=== PATIENT | female | born 1995 | race Asian ===

== ENCOUNTER 2017-09-30 12:12 | Emergency (ER) | payer OTHER ==
[2017-09-30 13:51] LABS: BASO % 0.2 % (0.0-1.0); EOS % 0.4 % (0.0-3.0); HEMATOCRIT 35.3 % (36.0-47.0); HEMOGLOBIN 12.2 g/dl (12.0-15.5); IMMATURE GRANULOCYTE % 0.8 % (0-3.0); LYMPH # 2.5 10^3/uL (1.5-6.5); LYMPH % 21.7 % (24.0-44.0); MEAN CORPUSCULAR HEMOGLOBIN 29.4 pg (27.0-33.0); MEAN CORPUSCULAR HGB CONC 34.6 g/dl (32.0-36.5); MEAN CORPUSCULAR VOLUME 85.1 fl (80.0-96.0); MONO # 0.8 10^3/uL (0.0-0.8); MONO % 6.7 % (0.0-5.0); NEUTROPHILS % 70.2 % (36.0-66.0); PLATELET COUNT, AUTOMATED 278 10^3/uL (150-450); RED BLOOD COUNT 4.15 10^6/uL (4.00-5.40); RED CELL DISTRIBUTION WIDTH 13.2 % (11.5-14.5); WHITE BLOOD COUNT 11.4 10^3/uL (4.0-10.0)
[2017-09-30 14:10] LABS: KETONE, URINE AUTO RFX 1+ mg/dL (NEGATIVE); LEUKOCYTE ESTERASE UR AUTO RFX NEGATIVE (NEGATIVE); MUCUS, URINE RFX SMALL (NEGATIVE); NITRITE, URINE AUTO RFX NEGATIVE (NEGATIVE); RBC, URINE AUTO RFX 4 /HPF (0-3); SPECIFIC GRAVITY UR AUTO RFX 1.027 (1.002-1.035); SQUAM EPITHELIAL CELL UR AURFX 1 /HPF (0-6); WBC, URINE AUTO RFX 1 /HPF (0-3)
[2017-09-30 14:39] LABS: ANION GAP 9 MEQ/L (8-16); BLOOD UREA NITROGEN 10 MG/DL (7-18); CALCIUM LEVEL 8.8 MG/DL (8.5-10.1); CARBON DIOXIDE LEVEL 24 MEQ/L (21-32); CHLORIDE LEVEL 104 MEQ/L (98-107); CREATININE FOR GFR 0.59 MG/DL (0.55-1.30); GLUCOSE, FASTING 80 MG/DL (70-100); HCG, SERUM QUANTITATIVE 42091 MIU/ML; POTASSIUM SERUM 4.3 MEQ/L (3.5-5.1); SODIUM LEVEL 137 MEQ/L (136-145)
== END 2017-09-30 15:04 | disposition home or self-care (01) ==
LOC: M ED 12:12
DX: O26.851 Spotting complicating pregnancy, first trimester (principal); N93.9 Abnormal uterine and vaginal bleeding, unspecified; Z3A.01 Less than 8 weeks gestation of pregnancy
CPT/HCPCS: 76801

== ENCOUNTER 2018-01-29 20:55 | Outpatient (CLI) | payer OTHER ==
[2018-01-29 21:46] LABS: APPEARANCE, URINE HAZY (CLEAR); BACTERIA, URINE AUTO NEGATIVE (NEGATIVE); BILIRUBIN, URINE AUTO NEGATIVE (NEGATIVE); BLOOD, URINE BLOOD 1+ (NEGATIVE); COLOR, URINE YELLOW (YELLOW); GLUCOSE, URINE (UA) AUTO NEGATIVE (NEGATIVE); KETONE, URINE AUTO NEGATIVE (NEGATIVE); LEUKOCYTE ESTERASE, URINE AUTO NEGATIVE (NEGATIVE); MUCUS, URINE SMALL (NEGATIVE); NITRITE, URINE AUTO NEGATIVE (NEGATIVE); PROTEIN, URINE AUTO NEGATIVE (NEGATIVE); RBC, URINE AUTO 1 /HPF (0-3); SPECIFIC GRAVITY URINE AUTO 1.019 (1.002-1.035); SQUAMOUS EPITHELIAL CELL UR AU 4 /HPF (0-6); UROBILINOGEN, URINE AUTO 0.2 mg/dL (0.0-2.0); WBC, URINE AUTO 4 /HPF (0-3)
== END 2018-01-29 22:10 | disposition home or self-care (01) ==
LOC: M LDO 20:55
DX: O26.892 Other specified pregnancy related conditions, second trimester (principal); R10.2 Pelvic and perineal pain; O99.612 Diseases of the digestive system complicating pregnancy, second trimester; K59.00 Constipation, unspecified; Z3A.23 23 weeks gestation of pregnancy
CPT/HCPCS: G0463

== ENCOUNTER 2018-03-03 12:52 | Emergency (ER) | payer OTHER ==
[2018-03-03 14:08] LABS: BASO % 0.5 % (0.0-1.0); EOS % 0.5 % (0.0-3.0); HEMATOCRIT 29.9 % (36.0-47.0); LYMPH # 1.4 10^3/uL (1.5-6.5); LYMPH % 17.2 % (24.0-44.0); MEAN CORPUSCULAR HEMOGLOBIN 29.4 pg (27.0-33.0); MEAN CORPUSCULAR HGB CONC 33.4 g/dl (32.0-36.5); MEAN CORPUSCULAR VOLUME 87.9 fl (80.0-96.0); MONO # 0.8 10^3/uL (0.0-0.8); MONO % 9.9 % (0.0-5.0); NEUTROPHILS # 5.6 10^3/uL (1.8-7.7); NEUTROPHILS % 69.9 % (36.0-66.0); PLATELET COUNT, AUTOMATED 269 10^3/uL (150-450); RED CELL DISTRIBUTION WIDTH 13.1 % (11.5-14.5)
[2018-03-03] MEDS: NS 1,000 ML IV (14:15)
[2018-03-03] MEDS: METOCLOPRAMIDE INJ 10MG/2ML VIAL (J2765) IV (14:15)
[2018-03-03 14:21] LABS: INR 1.03; PARTIAL THROMBOPLASTIN TIME 29.3 SECONDS (25.4-37.6); PROTHROMBIN TIME 13.6 SECONDS (12.1-14.4)
[2018-03-03 14:30] LABS: ALBUMIN 2.7 GM/DL (3.2-5.2); ALBUMIN/GLOBULIN RATIO 0.75 (1.00-1.93); ALKALINE PHOSPHATASE 108 U/L (45-117); ALT/SGPT 17 U/L (12-78); ANION GAP 8 MEQ/L (8-16); AST/SGOT 12 U/L (7-37); BILIRUBIN,DIRECT < 0.1 MG/DL (0.0-0.2); BILIRUBIN,TOTAL 0.2 MG/DL (0.2-1.0); BLOOD UREA NITROGEN 10 MG/DL (7-18); CALCIUM LEVEL 8.3 MG/DL (8.5-10.1); CARBON DIOXIDE LEVEL 24 MEQ/L (21-32); CHLORIDE LEVEL 106 MEQ/L (98-107); CREATININE FOR GFR 0.46 MG/DL (0.55-1.30); GLUCOSE, FASTING 96 MG/DL (70-100); POTASSIUM SERUM 3.8 MEQ/L (3.5-5.1); SODIUM LEVEL 138 MEQ/L (136-145); TOTAL PROTEIN 6.3 GM/DL (6.4-8.2)
== END 2018-03-03 16:08 | disposition home or self-care (01) ==
LOC: M ED 12:52
DX: O99.353 Diseases of the nervous system complicating pregnancy, third trimester (principal); G43.109 Migraine with aura, not intractable, without status migrainosus; Z3A.29 29 weeks gestation of pregnancy
CPT/HCPCS: J2765

== ENCOUNTER 2018-05-10 13:50 | Outpatient (CLI) | payer OTHER ==
[~2018-05-10] VITALS: Ht 172.7 cm; Wt 105.1 kg
[~2018-05-10 13:50] MED LIST: PRENTAB55 PO
[2018-05-10 14:19] VITALS: BP 139/83
== END 2018-05-10 15:20 | disposition home or self-care (01) ==
LOC: M LDO 13:50
PROVIDERS: ATTEND Obstetrics & Gynecology
DX: O26.893 Other specified pregnancy related conditions, third trimester (principal); O47.1 False labor at or after 37 completed weeks of gestation; Z3A.38 38 weeks gestation of pregnancy
CPT/HCPCS: 59025; G0378; G0463

== ENCOUNTER 2018-05-13 14:14 | Inpatient (IN) | payer OTHER ==
[2018-05-13] VITALS (19 sets, daily range): BP systolic 139–192; BP diastolic 64–95
[~2018-05-13] VITALS: Ht 172.7 cm; Wt 105.8 kg
[2018-05-13] MEDS ORDERED: PRENTAB9 PO (14:38)
[2018-05-13 15:32] LABS: HEMATOCRIT 30.8 % (36.0-47.0); HEMOGLOBIN 9.8 g/dl (12.0-15.5); MEAN CORPUSCULAR HEMOGLOBIN 25.4 pg (27.0-33.0); MEAN CORPUSCULAR HGB CONC 31.8 g/dl (32.0-36.5); MEAN CORPUSCULAR VOLUME 79.8 fl (80.0-96.0); PLATELET COUNT, AUTOMATED 297 10^3/uL (150-450); RED BLOOD COUNT 3.86 10^6/uL (4.00-5.40); WHITE BLOOD COUNT 9.5 10^3/uL (4.0-10.0)
[2018-05-13 15:46] LABS: ALT/SGPT 16 U/L (12-78); BILIRUBIN,TOTAL 0.3 MG/DL (0.2-1.0); CREATININE FOR GFR 0.57 MG/DL (0.55-1.30); LDH LACTATE DEHYDROGENASE 192 U/L (84-246); URIC ACID 4.6 MG/DL (2.6-6.0)
[2018-05-13] MEDS ORDERED: miSOPROStol 50 MCG 1/2 TAB (S0191) As Ordered ONE (17:59)
[2018-05-13] MEDS ORDERED: LACTATED RINGER'S 1000 ML IV STA (18:06)
[2018-05-13] MEDS ORDERED: LR 1,000 ML IV SCH (18:06)
--- NOTE | 2018-05-13 18:29 | HPEPDOC ---
Obstetrical History & Physical General Date of Admission May 13, 2018 at 14:14 History of Present Illness 21 y/o at 38+3 for IOL due to known Pre-E and BP's today 159/84. Diagnosis by BP's this week and 24JAN and a 24 hr UP 403 on 5FEB. Also c/o signif LE and hand swelling. No NOLAND today but has been having NOLAND's the last month. Preg up to this point uncomplicated. 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 Past Medical History Surgical History: Denies/None Family History Significant Family History: No pertinent family hx Social History Marital Status: Family situation: Spouse/partner home Psychosocial History: No pertinent psych hx * Smoker: non-smoker Alcohol: Denies Drugs: denies Abuse Violence Screening Have you been hit/kicked/slapp: No Have you been sexually assault: No Imunizations Tdap status: current Influenza Status: current Allergies Coded Allergies: No Known Allergies (Unverified , 09/30/17) Medications Scheduled Multivitamins/ ( 27-0.8 mg) 1 Tab Tab, 1 TAB PO DAILY Physical Examination Physical Examination GENERAL: Alert and oriented times three. ABDOMEN: Gravid and non-tender to touch. FETUS: Is vertex (VTX) by sterile vaginal examination (SVE), 160/-3 EXTREMITIES: No edema. Vital Signs/I&O Vital Signs Date Time Temp Pulse Resp B/P (MAP) Pulse Ox O2 Delivery O2 Flow Rate FiO2 05/13/18 15:16 85 18 142/95 (111) 05/13/18 14:44 98.4 Laboratory Data 24H LABS Laboratory Tests 2 05/13/18 14:37: Serology Scanned Report Hepatitis B Testing 05/13/18 15:14: Nucleated Red Blood Cells % (auto) 0.0, Creatinine 0.57, Aspartate Amino Transf (AST/SGOT) 15, Alanine Aminotransferase (ALT/SGPT) 16, Lactate Dehydrogenase 192, Total Bilirubin 0.3, Uric Acid 4.6 CBC/BMP Laboratory Tests 05/13/18 15:14 Red Blood Count 3.86 L, Mean Corpuscular Volume 79.8 L, Mean Corpuscular Hemoglobin 25.4 L, Mean Corpuscular Hemoglobin Concent 31.8 L, Red Cell Distribution Width 16.0 H, Aspartate Amino Transf (AST/SGOT) 15, Alanine Aminotransferase (ALT/SGPT) 16, Lactate Dehydrogenase 192, Total Bilirubin 0.3, Uric Acid 4.6 Urine Culture: Other (mixed hema) Pertinent Laboratoy Data Blood Type: A+ RBC Antibody Screen: Negative HIV: Negative Hepatitis B: Negative Rapid Plasma Reagin: Nonreactive Rubella: Immune Varicella: Immune Chlamydia/Gonorrhea: Negative Group B Streptococcus: Positive Quad Screen Test: Declined Cystic Fibrosis: Negative Glucose Tolerance Test: 132 Anatomy Ultrasound Placenta Location: Posterior Normal Anatomy: Yes Placenta Previa: No Assessment Variability: Moderate Accelerations: Positive Decelerations: None Tocometer Contractions: Yes Frequency: irregular Duration: less than 60 seconds Strength: palpated as mild Assessment/Plan Assessment Pre-E, no severe features as of yet. No Mag Sulfate indicated at this point. Plan Admit and orient. 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 Diet: clears Group B Streptococcus (GBS) pos, will start PCN 5/2.5 when active labor Labs and intravenous (IV) per unit protocol. Counseled on Pitocin, cytotec, Cook balloon and induction of labor (IOL). Lactated Ringers (LR): Bolus 1000 mL prior to epidural, then at 125 mL/hr. Anticipate normal spontaneous delivery () C-S as appropriate. Sessions MD HAYS,RODRICK Love MD May 13, 2018 18:29
[2018-05-13] MEDS: miSOPROStol 50 MCG 1/2 TAB (S0191) PO PRN ×2 (18:43→23:22)
[2018-05-13] MEDS ORDERED: CALCIUM GLUCONATE 1,000 MG in D5W MINI-BAG PLUS 100 ML IV PRN (23:15)
[2018-05-13] MEDS ORDERED: MAG Sulf (L&D) 4 GM/100 ML 4 GM in APPROPRIATE DILUENT 1 EA IV ONE (23:15)
[2018-05-13] MEDS ORDERED: LABETALOL HCL 100 MG/20 ML VIAL IV ONE (23:15)
[2018-05-13] MEDS ORDERED: LABETALOL 200 MG TAB PO SCH (23:15)
--- NOTE | 2018-05-13 23:28 | IPNPDOC ---
Text Note Date of Service The patient was seen on 05/13/18. NOTE Cook balloon still in place per RN Second dose Misoprostol due and OK to be placed per SOP, OK to do this, d/w RN BP's noted, evenly mild range and severe range, will start Labetalol 200 mg TID in attempt to minimize the times we need IV meds, however will also give 20 mg IV Labetalol now and monitor q 15 min Will also start Mag Sulfate per protocol 07/06 and get rpt labs (CBC, Pre-e profile and mag level) in 6 hours (initial serum labs were nl) Still planning on cx check 1-2 hrs after Cook balloon is out Sessions VS,Freddie, I+O VSFreddie I+O Laboratory Tests 05/13/18 15:14 Red Blood Count 3.86 L, Mean Corpuscular Volume 79.8 L, Mean Corpuscular Hemoglobin 25.4 L, Mean Corpuscular Hemoglobin Concent 31.8 L, Red Cell Distribution Width 16.0 H, Aspartate Amino Transf (AST/SGOT) 15, Alanine Aminotransferase (ALT/SGPT) 16, Lactate Dehydrogenase 192, Total Bilirubin 0.3, Uric Acid 4.6 Vital Signs Date Time Temp Pulse Resp B/P (MAP) Pulse Ox O2 Delivery O2 Flow Rate FiO2 05/13/18 22:13 68 18 152/86 (108) 05/13/18 21:28 97.6 SESSIONS,RODRICK Love MD May 13, 2018 23:28
[2018-05-13] MEDS: LR 1,000 ML IV SCH (23:52)
[2018-05-14] VITALS (87 sets, daily range): BP systolic 104–159; BP diastolic 55–100
[2018-05-14] MEDS: MAG Sulf (OBGYN) 20GM/500ML 20,000 MG in APPROPRIATE DILUENT 1 EA IV SCH ×3 (00:39→16:25)
[2018-05-14] MEDS ORDERED: LR 1,000 ML IV SCH (02:47)
[2018-05-14] MEDS ORDERED: OXYTOCIN DRIP 30 UNITS in APPROPRIATE DILUENT 1 EA IV SCH (03:00)
[2018-05-14 05:05] LABS: HEMATOCRIT 29.2 % (36.0-47.0); HEMOGLOBIN 9.4 g/dl (12.0-15.5); MEAN CORPUSCULAR HEMOGLOBIN 25.3 pg (27.0-33.0); MEAN CORPUSCULAR HGB CONC 32.2 g/dl (32.0-36.5); MEAN CORPUSCULAR VOLUME 78.7 fl (80.0-96.0); PLATELET COUNT, AUTOMATED 297 10^3/uL (150-450); RED BLOOD COUNT 3.71 10^6/uL (4.00-5.40); WHITE BLOOD COUNT 12.3 10^3/uL (4.0-10.0)
[2018-05-14 05:26] LABS: ALT/SGPT 13 U/L (12-78); BILIRUBIN,TOTAL 0.4 MG/DL (0.2-1.0); CREATININE FOR GFR 0.53 MG/DL (0.55-1.30); LDH LACTATE DEHYDROGENASE 189 U/L (84-246); MAGNESIUM LEVEL 4.6 MG/DL (1.8-2.4); URIC ACID 4.6 MG/DL (2.6-6.0)
[2018-05-14] MEDS ORDERED: LABETALOL 200 MG TAB PO SCH (09:00)
[2018-05-14] MEDS: LR 1,000 ML IV SCH ×2 (10:19→20:57)
--- NOTE | 2018-05-14 10:25 | IPNPDOC ---
Text Note Date of Service The patient was seen on 05/14/18. NOTE Accepting care of Ms. Santos 22 yo at 38+4 weeks gestation admitted for an IOL for pre eclampsia, she ruled in with a 24 hour urine protein >400 and elevated blood pressures. Her induction process was started with a cook balloon that was placed yesterday evening ~1830. Pitocin was started concurrently. She developed severe features of pre eclampsia (severe range BPs requiring Labetalol) during her induction and was started on magnesium for maternal seizure prophylaxis. Toxemia labs are stable with normal creatinine, AST/ALT and platelets. Urine output has been appropriate. Presented to room chaperoned by RN. Patient denies headaches, RUQ pain, or visual changes. Cook balloon removed. Cervix: 5/50/-2. FHR: Cat I, BL 110, moderate variability, +accels, no decels Vitals - BPs normal Pitocin is currently at 12mU. Will continue to titrate to effect. Epidural when patient desires. Will consider AROM at next exam if feasible. Continue mag at current rate. Safe to proceed. DO Konstantin VS,Freddie, I+O VS, Freddie, I+O Laboratory Tests 05/13/18 15:14 Red Blood Count 3.86 L, Mean Corpuscular Volume 79.8 L, Mean Corpuscular Hemoglobin 25.4 L, Mean Corpuscular Hemoglobin Concent 31.8 L, Red Cell Dis tribution Width 16.0 H, Aspartate Amino Transf (AST/SGOT) 15, Alanine Aminotransferase (ALT/SGPT) 16, Lactate Dehydrogenase 192, Total Bilirubin 0.3, Uric Acid 4.6 05/14/18 04:40 Red Blood Count 3.71 L, Mean Corpuscular Volume 78.7 L, Mean Corpuscular Hemoglobin 25.3 L, Mean Corpuscular Hemoglobin Concent 32.2, Red Cell Distribution Width 16.2 H, Aspartate Amino Transf (AST/SGOT) 14, Alanine Aminotransferase (ALT/SGPT) 13, Lactate Dehydrogenase 189, Total Bilirubin 0.4, Uric Acid 4.6 Vital Signs Date Time Temp Pulse Resp B/P (MAP) Pulse Ox O2 Delivery O2 Flow Rate FiO2 05/14/18 07:45 80 18 116/58 (77) 05/14/18 07:15 98.5 I&O- Last 24 Hours up to 6 AM 2/8/19 05:59 Intake Total 1200 ml Output Total 1030 ml Balance 170 ml LILIAM PHAN DO May 14, 2018 10:25
[2018-05-14] MEDS ORDERED: PENICILLIN G POTASSIUM IV 5 MU in D5W MINI-BAG PLUS 100 ML IV STA (10:33)
[2018-05-14] MEDS: LABETALOL 200 MG TAB PO SCH ×2 (11:00→23:00)
[2018-05-14 11:56] LABS: HEMATOCRIT 30.9 % (36.0-47.0); HEMOGLOBIN 9.8 g/dl (12.0-15.5); MEAN CORPUSCULAR HEMOGLOBIN 25.5 pg (27.0-33.0); MEAN CORPUSCULAR HGB CONC 31.7 g/dl (32.0-36.5); MEAN CORPUSCULAR VOLUME 80.5 fl (80.0-96.0); PLATELET COUNT, AUTOMATED 275 10^3/uL (150-450); RED BLOOD COUNT 3.84 10^6/uL (4.00-5.40); WHITE BLOOD COUNT 11.5 10^3/uL (4.0-10.0)
[2018-05-14] MEDS ORDERED: PENICILLIN G POTASSIUM IV 2.5 MU in APPROPRIATE DILUENT 1 EA IV SCH (14:45)
[2018-05-14] MEDS: PENICILLIN G POTASSIUM IV 2.5 MU in APPROPRIATE DILUENT 1 EA IV SCH ×2 (15:03→18:47)
--- NOTE | 2018-05-14 16:24 | IPNPDOC ---
Text Note Date of Service The patient was seen on 05/14/18. NOTE Presented to room for assessment of progress. Cervix: 5/-2. head well applied. AROM performed productive of clear fluid. BP remains normal to mildly elevated. Patient denies any headaches, RUQ pain, or visual changes. Urine output remains appropriate. No signs/symptoms of mag toxicity. Pitocin currently at 20mU. Will continue to titrate to effect. Epidural if and when patient desires. All patient questions answered. Liliam Pryor DO VS,Freddie, I+O VS, Freddie, I+O Laboratory Tests 05/14/18 04:40 Red Blood Count 3.71 L, Mean Corpuscular Volume 78.7 L, Mean Corpuscular Hemoglobin 25.3 L, Mean Corpuscular Hemoglobin Concent 32.2, Red Cell Distribution Width 16.2 H, Aspartate Amino Transf (AST/SGOT) 14, Alanine Aminotransferase (ALT/SGPT) 13, Lactate Dehydrogenase 189, Total Bilirubin 0.4, Uric Acid 4.6 05/14/18 11:48 Red Blood Count 3.84 L, Mean Corpuscular Volume 80.5, Mean Corpuscular Hemoglobin 25.5 L, Mean Corpuscular Hemoglobin Concent 31.7 L, Red Cell Distribution Width 16.1 H Vital Signs Date Time Temp Pulse Resp B/P (MAP) Pulse Ox O2 Delivery O2 Flow Rate FiO2 05/14/18 14:15 98.3 89 18 125/58 (80) I&O- Last 24 Hours up to 6 AM 05/14/18 06:00 Intake Total 1200 ml Output Total 1030 ml Balance 170 ml LILIAM PRYOR DO May 14, 2018 16:24
[2018-05-14] MEDS ORDERED: REFRIGERATOR IV KEYS XX PRN ×2 (17:15→18:15)
[2018-05-14] MEDS ORDERED: FENTANYL/ROPIVACAINE/NACL BAG 100 ML EPIDURAL SCH ×2 (17:15→18:15)
[2018-05-14] MEDS ORDERED: ONDANSETRON 4MG/2ML VIAL (J2405) IV PRN (18:15)
[2018-05-14] MEDS ORDERED: diphenhydrAMINE INJ 50MG/ML VIAL (J1200) IV PRN (18:15)
[2018-05-14] MEDS ORDERED: EPIDURAL/PCA KEYS XX PRN (18:15)
[2018-05-14] MEDS ORDERED: ePHEDrine SULFATE 25 MG/5 ML(5MG/ML) SYRINGE IV PRN (18:15)
[2018-05-14] MEDS ORDERED: NALOXONE INJ 0.4 MG/1 ML VIAL (J2310) IV PRN (18:15)
[2018-05-14] MEDS ORDERED: EPIDURAL COMMENT XX SCH (18:15)
--- NOTE | 2018-05-14 19:42 | IPNPDOC ---
Text Note Date of Service The patient was seen on 05/14/18. NOTE Patient comfortable with epidural in place. Cervix: 5-6/90/-1. FHR Cat I with +accels, no decels. Progress has been slow. Will recheck in 4 hours. Safe to proceed. DO Konstantin VS,Freddie, I+O VS, Freddie, I+O Laboratory Tests 05/14/18 04:40 Red Blood Count 3.71 L, Mean Corpuscular Volume 78.7 L, Mean Corpuscular Hemoglobin 25.3 L, Mean Corpuscular Hemoglobin Concent 32.2, Red Cell Distribution Width 16.2 H, Aspartate Amino Transf (AST/SGOT) 14, Alanine Aminotransferase (ALT/SGPT) 13, Lactate Dehydrogenase 189, Total Bilirubin 0.4, Uric Acid 4.6 05/14/18 11:48 Red Blood Count 3.84 L, Mean Corpuscular Volume 80.5, Mean Corpuscular Hemoglobin 25.5 L, Mean Corpuscular Hemoglobin Concent 31.7 L, Red Cell Distribution Width 16.1 H Vital Signs Date Time Temp Pulse Resp B/P (MAP) Pulse Ox O2 Delivery O2 Flow Rate FiO2 05/14/18 18:11 98.6 83, 85 18 159/97 (117) l I&O- Last 24 Hours up to 6 AM 05/14/18 06:00 Intake Total 1200 ml Output Total 1030 ml Balance 170 ml LILIAM PHAN DO May 14, 2018 19:42
[2018-05-14] MEDS ORDERED: ACETAMINOPHEN 500 MG TAB PO PRN (20:00)
--- NOTE | 2018-05-14 23:55 | IPNPDOC ---
Text Note Date of Service The patient was seen on 05/14/18. NOTE Presented to room for assessment. Cervix: 5/80/-1, unchanged, and now very edematous. Significant caput appreciated. There has been no cervical change for >4 hours, and cervix appears to be swollen. I recommended section for arrest of dilation. We reviewed all risks of surgery to include, but not limited to, bleeding requiring blood transfusion, risk of infection, risk of injury to bowel, bladder, uterus, or other structures which could require additional surgery, risk of needing a hysterectomy as a life saving procedure, risk of injury to baby, and even risk of and/or maternal . Ms. Santos verbalized understanding of these risks and elected to proceed. Consent forms signed. Ancef and azithromycin for infection prophylaxis. Anesthesia and OR notified. All patient questions answered. Liliam Pryor DO VS,Freddie, I+O VS, Freddie, I+O Laboratory Tests 05/14/18 04:40 Red Blood Count 3.71 L, Mean Corpuscular Volume 78.7 L, Mean Corpuscular Hemoglobin 25.3 L, Mean Corpuscular Hemoglobin Concent 32.2, Red Cell Distribution Width 16.2 H, Aspartate Amino Transf (AST/SGOT) 14, Alanine Aminotransferase (ALT/SGPT) 13, Lactate Dehydrogenase 189, Total Bilirubin 0.4, Uric Acid 4.6 05/14/18 11:48 Red Blood Count 3.84 L, Mean Corpuscular Volume 80.5, Mean Corpuscular Hemoglobin 25.5 L, Mean Corpuscular Hemoglobin Concent 31.7 L, Red Cell Distribution Width 16.1 H Vital Signs Date Time Temp Pulse Resp B/P (MAP) Pulse Ox O2 Delivery O2 Flow Rate FiO2 05/14/18 22:58 103 18 123/60 (81) 05/14/18 22:42 98.5 I&O- Last 24 Hours up to 6 AM 05/14/18 06:00 Intake Total 1200 ml Output Total 1030 ml Balance 170 ml LILIAM PRYOR DO May 14, 2018 23:55
[2018-05-14] MEDS ORDERED: ceFAZolin 2 GM/D5W 50 ML IV BAG (J0690 PER 500MG) As Ordered ONE (23:56)
[2018-05-14] MEDS ORDERED: BICITRA 30ML SOLN UDC As Ordered ONE (23:56)
[2018-05-14] MEDS ORDERED: AZITHROMYCIN INJ 500MG VIAL (J0456) As Ordered ONE (23:57)
[2018-05-15] VITALS (21 sets, daily range): BP systolic 112–158; BP diastolic 60–93
[2018-05-15] MEDS ORDERED: AZITHROMYCIN INJ 500 MG, VIAL MATE ADAPTER 1 EACH in D5W 250 ML IV ONE ×3
[2018-05-15] MEDS ORDERED: KETOROLAC 60 MG/2 ML VIAL (J1885) As Ordered ONE (00:21)
[2018-05-15] MEDS ORDERED: LIDOCAINE 2% W/EPIN INJ 20ML **PRES FREE As Ordered ONE (00:21)
[2018-05-15] MEDS ORDERED: dexameTHASONE 4 MG/ML 1ML VIAL (J1100) As Ordered ONE (00:21)
[2018-05-15] MEDS ORDERED: MORPHINE PRES-FREE INJ 10 MG/10 ML VIAL (J2274) As Ordered ONE (00:21)
[2018-05-15] MEDS ORDERED: ONDANSETRON 4MG/2ML VIAL (J2405) As Ordered ONE (00:21)
[2018-05-15] MEDS ORDERED: OXYTOCIN INJ 10 UNITS/ML VIAL (J2590) As Ordered ONE (00:21)
[2018-05-15] MEDS ORDERED: SODIUM BICARBONATE 8.4% INJ 50MEQ 50 ML VIAL As Ordered ONE (00:21)
[2018-05-15] MEDS ORDERED: LR 1,000 ML IV SCH (01:15)
[2018-05-15] MEDS ORDERED: fentaNYL 100 MCG/2 ML INJECTION (J3010) IV PRN (01:15)
[2018-05-15] MEDS ORDERED: MEASLES,MUMPS,RUBELLA VACCINE INJ (MMR-II) (90707) SC SCH (01:15)
[2018-05-15] MEDS ORDERED: ONDANSETRON 4MG/2ML VIAL (J2405) IV PRN (01:15)
[2018-05-15] MEDS ORDERED: DOCUSATE SODIUM 100 MG CAP PO PRN (01:15)
[2018-05-15] MEDS ORDERED: PERCOCET 5MG/325MG TAB PO PRN ×3 (01:15)
[2018-05-15] MEDS ORDERED: RHOGAM 300 MCG (1500 IU) INJ (J2790) IM SCH (01:15)
[2018-05-15] MEDS: MAG Sulf (OBGYN) 20GM/500ML 20,000 MG in APPROPRIATE DILUENT 1 EA IV SCH (03:20)
[2018-05-15] MEDS ORDERED: BICITRA 30ML SOLN UDC PO SCH (06:00)
[2018-05-15] MEDS: KETOROLAC 30 MG/ML VIAL (J1885) IV SCH ×3 (07:17→19:09)
[2018-05-15] MEDS: LR 1,000 ML IV SCH ×3 (07:47→13:06)
[2018-05-15 07:49] LABS: ALBUMIN 2.2 GM/DL (3.2-5.2); ALT/SGPT 11 U/L (12-78); BILIRUBIN,TOTAL 0.6 MG/DL (0.2-1.0); BLOOD UREA NITROGEN 7 MG/DL (7-18); CALCIUM LEVEL 7.5 MG/DL (8.5-10.1); CARBON DIOXIDE LEVEL 23 MEQ/L (21-32); CHLORIDE LEVEL 107 MEQ/L (98-107); CREATININE FOR GFR 0.64 MG/DL (0.55-1.30); GLUCOSE, FASTING 124 MG/DL (70-100); POTASSIUM SERUM 4.6 MEQ/L (3.5-5.1); SODIUM LEVEL 137 MEQ/L (136-145); TOTAL PROTEIN 5.5 GM/DL (6.4-8.2)
--- NOTE | 2018-05-15 07:54 | IPNPDOC ---
Progress Note Date of Service: May 15, 2018 Progress Note Ms. Santos is a 22 yo G1 now P1 who underwent an uncomplicated PLTCS last night at ~0100 for arrest of dilation after being admitted for an IOL for pre eclampsia with severe features. She is currently on a magnesium drip. She reports overall feeling well this morning just tired. She has some abdominal soreness but the pain medications are helping. She has not yet been ambulatory yet. She denies any headaches, RUQ pain, or visual changes. Vitals - VSS, afebrile, BP normal to mildly elevated, non tachycardic General - AAOX3, sitting up in bed, NAD Abdomen - Incision covered, minimal strikethrough. Appropriate tenderness to palpation. Fundus firm at U-2. Extremities - +1 lower extremity edema UO - Borderline low at ~30cc/hr over last two hours. Labs: Pre op H/H 9.8/30.9 ---> pending post op H/H Pending AM CMP Ms. Santos reports feeling well this morning, just tired. She has no signs/symptoms of pre eclampsia or mag toxicity. Administered gentle fluid bolus due to low urine output. Will check CMP this morning, and consider dose of lasix if creatinine remains stable. Suspect dehydration and third spacing contributing to oliguria. Will continue to encourage PO fluid intake and gentle IV fluids, as she is at risk for 3rd spacing due to her severe Pre E. May also consider halting magnesium earlier as this can affect urine output. All patient questions answered. Liliam Pryor, DO VS, I&O, 24H, Freddie Vital Signs/I&O Vital Signs Date Time Temp Pulse Resp B/P (MAP) Pulse Ox O2 Delivery O2 Flow Rate FiO2 05/15/18 07:03 66 150/85 (106) 05/15/18 06:03 97.9 05/15/18 05:01 18 I&O- Last 24 Hours up to 6 AM 05/15/18 06:00 Intake Total 6676.9 ml Output Total 4035 ml Balance 2641.9 ml Laboratory Data 24H LABS Laboratory Tests 2 05/14/18 11:48: Nucleated Red Blood Cells % (auto) 0.0 05/15/18 07:13: CBC/BMP Laboratory Tests 05/14/18 11:48 Red Blood Count 3.84 L, Mean Corpuscular Volume 80.5, Mean Corpuscular Hemoglobin 25.5 L, Mean Corpuscular Hemoglobin Concent 31.7 L, Red Cell Distribution Width 16.1 H LILIAM PRYOR. DO May 15, 2018 07:54
[2018-05-15] MEDS: ONDANSETRON 4MG/2ML VIAL (J2405) IV PRN ×2 (08:09→15:16)
[2018-05-15] MEDS: PRENATAL VITAMINS CHEWABLE TABLET PO SCH (09:36)
[2018-05-15] MEDS: LABETALOL 200 MG TAB PO SCH ×2 (11:11→23:15)
--- NOTE | 2018-05-15 11:46 | NUR ---
REVIEW PROGRESS 22 YO HX SEVERE PRE E HAD PRIMARY CS MALE NOW ON MGSO4 WITH DECREASED URINARY OUT PUT BP MODERATE 158/93,150/85 H/H 9.8 /30.9 PTL 275 MG LEVEL 4.6 PLAN REVIEWED CHEST CLEAR MODERATE PEDAL EDEMA, REFLEXES NORMAL NO GUNNAR NUS ORIENTATED NO VISUAL NO RUQ PAIN PLAN BOLUS 800 ML AND KEEP LASIX AVAILABLE REVIEWED 1 HOUR LATER STARTED DIURESIS 150 ML. NOW 2 HOURS LATER 200 ML WILL MAINTAIN MGSO4 FOR 24 HOURS SAFE TO PROCEED
[2018-05-15 14:04] LABS: ALBUMIN 2.2 GM/DL (3.2-5.2); ALT/SGPT 11 U/L (12-78); BILIRUBIN,TOTAL 0.4 MG/DL (0.2-1.0); BLOOD UREA NITROGEN 6 MG/DL (7-18); CALCIUM LEVEL 7.6 MG/DL (8.5-10.1); CARBON DIOXIDE LEVEL 27 MEQ/L (21-32); CHLORIDE LEVEL 105 MEQ/L (98-107); CREATININE FOR GFR 0.64 MG/DL (0.55-1.30); GLUCOSE, FASTING 99 MG/DL (70-100); POTASSIUM SERUM 4.4 MEQ/L (3.5-5.1); SODIUM LEVEL 136 MEQ/L (136-145); TOTAL PROTEIN 5.3 GM/DL (6.4-8.2)
[2018-05-16] VITALS (8 sets, daily range): BP systolic 118–142; BP diastolic 58–80
[2018-05-16] MEDS ORDERED: MAG Sulf (OBGYN) 20GM/500ML 20,000 MG in APPROPRIATE DILUENT 1 EA IV SCH (00:30)
[2018-05-16] MEDS: IBUPROFEN 800 MG TAB PO SCH ×3 (06:21→19:23)
[2018-05-16 07:23] LABS: HEMATOCRIT 23.8 % (36.0-47.0); MEAN CORPUSCULAR HGB CONC 31.9 g/dl (32.0-36.5); MEAN CORPUSCULAR VOLUME 81.5 fl (80.0-96.0); PLATELET COUNT, AUTOMATED 229 10^3/uL (150-450); RED BLOOD COUNT 2.92 10^6/uL (4.00-5.40); WHITE BLOOD COUNT 11.5 10^3/uL (4.0-10.0)
[2018-05-16 07:29] LABS: HEMOGLOBIN 7.6 g/dl (12.0-15.5)
[2018-05-16 07:43] LABS: ALT/SGPT 10 U/L (12-78); BILIRUBIN,TOTAL 0.2 MG/DL (0.2-1.0); BLOOD UREA NITROGEN 7 MG/DL (7-18); CALCIUM LEVEL 7.3 MG/DL (8.5-10.1); CARBON DIOXIDE LEVEL 26 MEQ/L (21-32); CHLORIDE LEVEL 107 MEQ/L (98-107); CREATININE FOR GFR 0.62 MG/DL (0.55-1.30); GLUCOSE, FASTING 82 MG/DL (70-100); SODIUM LEVEL 138 MEQ/L (136-145); TOTAL PROTEIN 5.5 GM/DL (6.4-8.2)
[2018-05-16] MEDS: PRENATAL VITAMINS CHEWABLE TABLET PO SCH (10:29)
[2018-05-16] MEDS: LABETALOL 200 MG TAB PO SCH (22:28)
[2018-05-17 02:00] VITALS: BP 138/74
[2018-05-17] MEDS: IBUPROFEN 800 MG TAB PO SCH (03:10)
[2018-05-17 06:00] VITALS: BP 150/86
[2018-05-17] MEDS: PRENATAL VITAMINS CHEWABLE TABLET PO SCH (08:23)
--- NOTE | 2018-05-17 08:38 | DS.PDOC ---
Discharge Summary General Date of Admission May 13, 2018 at 14:14 Date of Discharge May 17, 2018 Discharge Summary HOSPITAL COURSE: ms. Santos is a 22 yo G1 now P1 who underwent an uncomplicated PLTCS on 15May2018 just after midnight for arrest of dilation after being admitted for an IOL for pre eclampsia with severe features. She received IV magnesium intrapartum and 24 hours for seizure prophylaxis. Her course has been unremarkable. On her day of discharge she was meeting all appropriate discharge criteria. She was ambulating, voiding, stooling, tolerating a regular diet, and her pain was well controlled. She had mildly elevated BPs but had no symptoms of headaches, RUQ pain, or visual changes. In addition, she was mildly anemic (starting H/H before IOL was ~9/30) but had no dizziness, SOB, or weakness . DISCHARGE MEDICATIONS: Please see below. ALLERGIES: Please see below. PHYSICAL EXAMINATION ON DISCHARGE: VITAL SIGNS: Please see below. GENERAL: AAOX3, sitting up in bed , no acute distress CARDIOVASCULAR EXAMINATION: RRR ABDOMINAL EXAMINATION: Fundus firm at U-2. No fundal tenderness. Bandage re moved from incision. Incision clean/dry/intact. Steri strips in place. No tenderness to palpation. No discharge from incision. EXTREMITIES: No edema PSYCHIATRIC EXAMINATION: Affect appropriate. LABORATORY DATA: Please see below. ACTIVITY: Pelvic rest for 6 weeks. No lifting greater than 10 pounds for 6 weeks after surgery. DIET: Regular diet DISCHARGE PLAN: Discharge to home today DISPOSITION: Discharge home. DISCHARGE INSTRUCTIONS: 1. Blood pressure check on Thursday in the OBGYN clinic 2. Pelvic rest for 6 weeks 3. no lifting greater than 10 pounds until cleared by your surgeon 4. Return to care [facility] the [facility] or the ER for any of the following symptoms: fevers/chills, severe pain, severe n/v, heavy bleeding that soaks through m ultiple pads per hour, or any other urgent concerns. ITEMS TO FOLLOWUP ON ON OUTPATIENT: 1. 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 2. BP check Thursday in the [facility] clinic DISCHARGE CONDITION: Stable. Liliam phan DO TIME SPENT ON DISCHARGE: Greater than 20 minutes. Vital Signs/I&Os Vital Signs Date Time Temp Pulse Resp B/P (MAP) Pulse Ox O2 Delivery O2 Flow Rate FiO2 05/17/18 06:00 97.6 76 18 150/86 (107) 98 I&O- Last 24 Hours up to 6 AM 05/17/18 06:00 Output Total 1700 ml Balance -1700 ml Discharge Medications Scheduled Labetalol HCl (Labetalol HCl) 200 Mg Tab, 200 MG PO BID, (Reported) Multivitamins/ ( 27-0.8 mg) 1 Tab Tab, 1 TAB PO DAILY, (Reported) Scheduled PRN Docusate Sodium (Colace) 100 Mg Cap, 100 MG PO QHS PRN for CONSTIPATION, (R eported) Ibuprofen (Ibuprofen) 400 Mg Tab, 800 MG PO Q8H PRN for PAIN, (Reported) Oxycodone/Acetaminophen (Oxycodone/Acetaminophen 5-325 mg) 1 Tab Tab, 1 TAB PO Q4H PRN for PAIN SCALE 1-5, (Reported) Oxycodone/Acetaminophen (Oxycodone/Acetaminophen 5-325 mg) 1 Tab Tab, 2 TAB PO Q4H PRN for PAIN SCALE 6-10, (Reported) Allergies Coded Allergies: No Known Allergies (Unverified , 09/30/17) LILIAM PHAN DO May 17, 2018 08:38
[2018-05-17] MEDS ORDERED: COLA100C5 PO (10:21)
[2018-05-17] MEDS ORDERED: OXYC1TAB23 PO (10:21)
[2018-05-17] MEDS ORDERED: IBUP-1114 PO (10:21)
[2018-05-17] MEDS ORDERED: LABE20TAB PO (10:21)
[2018-05-17 11:13] VITALS: BP 150/86
[2018-05-17] MEDS: LABETALOL 200 MG TAB PO SCH (11:13)
--- NOTE | 2018-05-17 16:30 | IPN ---
DATE: 05/16/2018 TIME: 0600 hours This lady is a 3 now para 1 who was admitted 38 and 3 weeks of gestation for induction of labor because of preeclampsia. She had a primary section for arrest of dilatation, a live male 7 pounds, 12 ounces, 3520 grams, scores of 9 and 9 at 1 and 5 minutes respectively. Her admitting hemoglobin was 9.8, hematocrit 30.8 and platelets were 297. day #1, hemoglobin 9.8, hematocrit 30.9 and platelets were 275. She had been on magnesium sulfate prophylactically for preeclampsia and it was discontinued 24 hours after. She began diuresing after about 7 or 8 hours and her hourly output anywhere from 100-250 mL/hour. Her vital signs presently: Her blood pressure is 129/79, respirations 18, pulse 73, temperature 97.7. The rest of the examination is unremarkable. Chest is clear bilaterally to bases. No wheezes or rhonchi. No CVA tenderness. Uterus two below. Lochia is moderate. Four quadrant bowel sounds are noted. Incision is clean and dry. Her edema in her feet are going down and she is . She is alert, awake. She is oriented. She is passing gas and she presently, other than being tired, feels well. Our plan of care is to discontinue the Weinberg catheter, we have discontinued the magnesium sulfate, repeat her CBC and her electrolytes, and discharge her to the floor.
--- NOTE | 2018-05-17 17:08 | RO ---
DATE OF PROCEDURE: 05/15/2018 PREPROCEDURE DIAGNOSIS: Arrest of dilation. POSTPROCEDURE DIAGNOSIS: Arrest of dilation. PROCEDURE: Primary low transverse section. SURGEON: Dr. Kevyn Pryor MARINA DRY DOCK MANAGER: Anastasiya Cage CNM, provided excellent retraction and assistance with exposure ANTIBIOTICS: Ancef and Azithromycin ANESTHESIA: Epidural. FLUIDS: 700 mL lactated Ringer's (LR). URINE OUTPUT: 125 mL. ESTIMATED BLOOD LOSS: 600 mL. COMPLICATIONS: None. DETAILED PROCEDURE DESCRIPTION: The risks, benefits, indications, and alternatives of the procedure were reviewed with the patient and informed consent was obtained. The patient was taken to the operating room where epidural anesthesia was found to be adequate. She was then prepped and draped in the usual sterile fashion in the dorsal supine position. A surgical time-out was then performed, and the patient's identify and the planned procedure were verified with the operative team. A Pfannenstiel skin incision was then made with a scalpel and carried through to the underlying layer of fascia. The fascia was incised in the midline, and the incision was extended laterally with Gómez scissors. The superior aspect of the fascial incision was grasped with Derik clamps, elevated, and the underlying rectus muscles were dissected off with a scalpel. Attention was then turned to the inferior aspect of this incision, which in a similar fashion, was grasped, tented up with Derik clamps and the rectus muscles were dissected off with Gómez scissors. The rectus muscles were then at the midline. The peritoneum was identified and entered digitally. The peritoneal incision was then extended horizontally and superiorly with good visualization of the bladder. A bladder blade was then inserted into the abdomen. The vesicouterine peritoneum was then identified and entered sharply with the scalpel. This incision was then extended laterally and a bladder flap was created digitally. Next, the lower uterine segment was incised in a transverse fashion with the scalpel. The uterine incision was then extended manually. Clear fluid was noted upon entry into the uterus. The infant was found in cephalic occiput posterior (OP) presentation. The 's head was delivered atraumatically through the hysterotomy without difficulty, followed easily by the remainder of the body. The nose and mouth were suctioned with a bulb syringe, and the cord was doubly clamped and cut. The infant was then handed off to the awaiting pediatricians. The placenta was then removed manually, and the uterus was then exteriorized and cleared of all clots and debris. The uterine incision was then repaired with #0 Monocryl suture in a running locked fashion. A second layer of #0 Monocryl was then used to imbricate the hysterotomy in a vertical fashion. Inspection revealed excellent hemostasis. The posterior cul-de-sac was then irrigated to good effect. The uterus was then returned to the abdomen, and the hysterotomy was again inspected and continued to be hemostatic. The paracolic gutters were then irrigated and cleared of all clots and debris. The bladder blade was removed from the abdomen. The peritoneum was then reapproximated using #3-0 Vicryl suture. The fascia was then reapproximated using #0 Vicryl suture in a running fashion. The subcutaneous fat was closed with #3-0 Vicryl suture in a continuous fashion. The skin was closed with #4-0 Monocryl suture in a subcuticular fashion. The incision was then dressed with Steri-Strips and a pressure dressing was applied. At the completion of the case, a bimanual exam was performed which revealed good uterine tone and minimal vaginal bleeding. The patient tolerated the procedure well. The sponge, lap, needle, and instrument counts were correct times three. The patient was taken to the recovery room in stable condition. LALITA
--- NOTE | 2018-05-18 15:02 | DSES ---
DATE OF ADMISSION: 05/13/2018 DATE OF DISCHARGE: 05/17/2018 This lady is a 22-year-old 1 now para 1 who was admitted at 38 weeks and 3 days for induction of labor because of preeclampsia. She had an arrest of dilatation and had a primary section of a live male weighing 7 pounds 12 ounces, 3520 grams, scores of nine and nine at 1 and 5 minutes respectively. On her second postop day we discussed phlebitis, cystitis, mastitis, endometritis, cellulitis, diet, exercise pain management, perineal breast and wound care. She is presently on labetalol 200 b.i.d. and her vital signs today her blood pressure is 138/74, respirations are 18, pulse is 70, temperature 98.3. She has had mid range blood pressures throughout her stay here and she will be maintained on her labetalol for discharge. Her admitting hemoglobin was 9.8, hematocrit 30.8 and platelets were 297. Her discharge hemoglobin was 7.6, hematocrit 28.3 and platelets are 229. She is asymptomatic with that hemoglobin/hematocrit. The rest the examination was unremarkable. She is normocephalic, atraumatic. Neck full range of motion. Pupils equal and reactive to light. Distal pulses symmetric. No evidence of deep vein thrombosis (DVT), pulmonary embolism (PE), or superficial phlebitis. Chest is clear bilaterally bases. No wheezes or rhonchi. No CVA tenderness. Abdomen soft. Uterus 2 below. Lochia is moderate, four quadrant bowel sounds. Incision is clean and dry. She has no rashes, lesions or pruritus. No arthralgia, myalgia. No joint pain. No complaint cough, wheeze, or shortness of breath or dyspnea on exertion. No bruising. No bleeding. Neuro complete. No incontinency or frequency. No nausea, vomiting, diarrhea or constipation. No diabetic issues. She does not smoke or drink or abuse drugs. She is . There is good support systems at home. In summary we have a 38 and 3 with preeclampsia, history of arrest of dilatation delivered primary section, male, for discharge follow-up in 2 weeks for incision check, and 6 weeks check. Medications were dispensed on discharge.
== END 2018-05-17 11:50 | disposition home or self-care (01) | DRG 773 ==
LOC: M LDI 14:14 → M OBS 05-16 07:39
PROVIDERS: ADMIT Obstetrics & Gynecology; ATTEND Obstetrics & Gynecology
PROC: 3E0134Z Introduction of Serum, Toxoid and Vaccine into Subcutaneous Tissue, Percutaneous Approach (ICD-10-PCS; 2018-05-14)
PROC: 10907ZC Drainage of Amniotic Fluid, Therapeutic from Products of Conception, Via Natural or Artificial Opening (ICD-10-PCS; 2018-05-14)
PROC: 10D00Z1 Extraction of Products of Conception, Low, Open Approach (ICD-10-PCS; principal; 2018-05-15 00:09)
DX: O14.14 Severe pre-eclampsia complicating childbirth (principal); Z37.0 Single live birth; O62.0 Primary inadequate contractions; O99.820 Streptococcus B carrier state complicating pregnancy; Z79.899 Other long term (current) drug therapy